=== PATIENT | male | born 1955 | race Caucasian/White ===

== ENCOUNTER → 2018-01-27 | Outpatient (CLI) | payer OTHER, BC ==
[~2018-01-27] MED LIST: ACETAMINOPHEN325 M1 PO; AFLURIA 2045 MCG/0.4; AGGRENOX CAPSU1 EACH PO; ALBUTEROL INH; ALLEGRA ALLERG180 MG PO; ALLEGRA180 MG PO; AMARYL4 MG PO; AMBIEN 10 MG TA10 MG PO; ANTIVERT25 MG PO; ASMANEX0.135 G1 INH; ASPIRIN81 M2 PO; ATIVAN0.5 MG PO; AVELOX 400 MG400 MG PO; AZITHROMYCIN 2250 MG PO; BUSPIRONE HCL10 MG PO; CEFTIN 250 MG250 MG PO; CELEXA 20 MG TA20 M1 PO; CELEXA 20 MG TA20 MG; CENTRUM SILVER1 EAC2 PO; CHANTIX0.5 MG; CHANTIX1 EACH PO; CHANTIX1 MG PO; CLONAZEPAM 1 MG1 M1 PO; CLONAZEPAM PO; COLACE100 MG PO; DALIRESP500 MCG PO; DIPHENOXYLATE/A1 TA1 PO; FORADIL12 MCG INH; FUROSEMIDE 20 M20 M1 PO; FUROSEMIDE 40 M40 M1 PO; GLUCOPHAGE500 MG PO; INSPRA25 MG PO; LASIX 20 MG TAB20 MG PO; LEVAQUIN 500 M500 M2; LEVAQUIN 500 M500 M2 PO; LEVAQUIN 750 M750 MG; LEVOTHYROXINE0.05 MG PO; LISINOPRIL10 MG PO; LISINOPRIL20 MG PO; LOVASTAT40 PO; MAVIK2 MG PO; MUCINEX600 MG PO; MUCUS RELIEF600 MG PO; NASONEX17 GM NASAL; NASONEX17 GM NS; NEXIUM40 MG PO; NIFEDIPINE ER60 M1 PO; NORCO 5-325 TA1 EACH PO; OXYCODONE HCL E10 MG PO; PANTOPRAZOLE SO40 M1 PO; PNEUMOVAX25 MCG/0.5; PREDNISONE 10 M10 M1; PREDNISONE 10 M10 M1 PO; PREDNISONE 10 M10 MG; PREDNISONE 20 M20 M1; PREDNISONE 5 MG5 M1 PO; PREDNISONE 5 MG5 MG PO; PREVACID30 MG PO; PROAIR HFA8.5 GM INH; PROCARDIA XL60 MG PO; PROVENTIL IH; PULMICORT0.5 MG/21; REMERON15 MG PO; REMERON30 MG PO; ROBAXIN 750 MG750 M1 PO; SPIRIVA INH; SYMBICORT160 MCG/4. INH; SYNTHROID PO; SYNTHROID50 MCG PO; TRAMADOL 50 MG50 MG PO; TRANSDERM-SCO1 PATC1 TD; TRAZODONE HCL50 MG PO; VANCOCIN 250 M250 M1 PO; VENLAFAXINE HC150 M1 PO; VITAMIN B-12500 MCG PO; VITAMIN D 5050000 I1 PO; VITAMIN D1000 UNI1 PO; VITAMIN D31000 UNI2 PO; Venlafaxine PO; WELLBUTRIN SR150 MG PO; XIFAXAN550 MG PO; XOPENEX 0.63 MG/3 M1 INH; XOPENEX 1.25 MG/3 M1 INH; XOPENEX1.25 MG/3 INH; ZOFRAN 4 MG ORAL4 M1 DISSOLVE; ZOLPIDEM TART12.5 M1 PO
== END ==
LOC: RAD 10:53
DX: J43.9 Emphysema, unspecified (principal); J41.0 Simple chronic bronchitis

== ENCOUNTER 2018-04-06 16:39 | Inpatient (IN) | payer OTHER, BC ==
[~2018-04-06] VITALS: Ht 172.7 cm; Wt 85.8 kg
--- NOTE | ~2018-04-06 | EKG ---
[address] [place] [address] ELECTROCARDIOGRAM REPORT Name: RAYSHAWN ALFARO Room #: 411-P ADM IN M.R.#: [id number] Admission: 04/06/18 Attend Phys: Kit Ronquillo Discharge: Date of : 51 Report #: [id number] THIS REPORT FOR: //name// [facility] ED Test Date: 2018-04-06 Test Time: 17:07:01 Pat Name: RAYSHAWN ALFARO Department: Room: Gender: M [facility] 1955 Requested By: Flaco Mittal Order Number: [id number] MD: Nick Julien Measurements Intervals [place] Rate: 80 P: 8 WA: 149 QRS: 5 QRSD: 93 T: 51 QT: 393 QTc: 454 Interpretive Statements Baseline artifact Sinus rhythm Atrial premature complex Compared to ECG 09/23/2016 13:59:47 Atrial premature complex(es) now present Electronically Signed On 04-07-2018 7:59:28 CDT by Nick Julien [email or web address] <ELECTRONICALLY SIGNED> By: Nick Julien MD, [facility] 04/07/18 0759 06 06 Nick Julien MD, FACC /EPI
[~2018-04-06 16:39] MED LIST changes: -BUSPIRONE HCL10 MG PO; -MUCINEX600 MG PO; -PANTOPRAZOLE SO40 M1 PO; -PREDNISONE 5 MG5 M1 PO; -TRAZODONE HCL50 MG PO
[2018-04-06 16:57] VITALS: BP 122/76
[2018-04-06] MEDS ORDERED: BUSPIRONE HCL10 MG PO (17:03)
[2018-04-06] MEDS ORDERED: TRAZODONE HCL50 MG PO (17:03)
[2018-04-06 17:12] LABS: ABSOLUTE NEUTROPHILS 4.5 thou/uL (1.4-8.2); BASOPHILS 0.9 % (0.0-2.0); EOSINOPHILS 6.7 % (0.0-3.0); HEMATOCRIT 40.4 % (42.0-52.0); HEMOGLOBIN 13.8 gm/dL (14.0-18.0); MCH 30.4 pg (26.0-34.0); MCHC 34.2 g/dL (28.0-37.0); MCV 88.8 fL (80.0-100.0); PLATELET COUNT 263 thou/uL (150-400); POLYS 61.4 % (36.0-66.0); RBC 4.54 mil/uL (4.50-6.00); RDW 13.2 % (10.5-14.5); WBC 7.3 thou/uL (4.0-11.0)
[2018-04-06 17:23] LABS: ANION GAP 7 mmol/L (7-16); BUN 13 mg/dL (7-18); CALCIUM 9.3 mg/dL (8.5-10.1); CHLORIDE 102 mmol/L (98-107); CO2 31 mmol/L (21-32); CREATININE 1.3 mg/dL (0.7-1.3); GLUCOSE 89 mg/dL (74-106); POTASSIUM 4.2 mmol/L (3.5-5.1); SODIUM 140 mmol/L (136-145)
[2018-04-06 17:25] LABS: BE(vivo) 3.4 mmol/L (-2 to +3); HCO3 27.8 mmol/L (22.0-26.0); PCO2 41.6 mmHg (35.0-45.0); PO2 101.2 mmHg (80.0-100.0); pH 7.443 (7.360-7.450); sO2 97.8 % (92.0-98.0)
[2018-04-06 17:32] LABS: ALBUMIN 3.5 g/dL (3.4-5.0); SGOT 17 U/L (15-37); SGPT 20 U/L (30-65); TOTAL BILIRUBIN 0.4 mg/dL (<0.1-1.0); TOTAL PROTEIN 7.4 g/dL (6.4-8.2); TROPONIN-I < 0.04 ng/mL (<0.06)
[2018-04-06 18:10] VITALS: BP 144/60
[2018-04-06 18:39] LABS: TSH 0.774 uIU/mL (0.358-3.740)
[2018-04-06 19:15] VITALS: BP 137/63
[2018-04-06 20:25] VITALS: BP 137/63
[2018-04-07 04:00] VITALS: BP 130/60
[2018-04-07 09:00] VITALS: BP 164/79
[2018-04-07 11:47] LABS: HEMATOCRIT 38.2 % (42.0-52.0); HEMOGLOBIN 12.6 gm/dL (14.0-18.0); MCH 29.9 pg (26.0-34.0); MCV 90.5 fL (80.0-100.0); RBC 4.22 mil/uL (4.50-6.00); RDW 13.5 % (10.5-14.5); WBC 7.1 thou/uL (4.0-11.0)
[2018-04-07 11:56] LABS: CALCIUM 8.7 mg/dL (8.5-10.1); CREATININE 1.4 mg/dL (0.7-1.3); POTASSIUM 4.3 mmol/L (3.5-5.1)
[2018-04-07 17:43] VITALS: BP 154/70
[2018-04-07 19:40] VITALS: BP 197/89
[2018-04-07 21:15] VITALS: BP 178/79
[2018-04-08 07:35] VITALS: BP 157/74
[2018-04-08 20:31] VITALS: BP 178/67
[2018-04-09 07:50] VITALS: BP 181/88
[2018-04-09 10:55] VITALS: BP 160/81
[2018-04-09 20:01] VITALS: BP 170/83
[2018-04-10 08:01] VITALS: BP 170/88
[2018-04-10 08:05] LABS: CALCIUM 8.6 mg/dL (8.5-10.1); CREATININE 1.3 mg/dL (0.7-1.3); POTASSIUM 4.4 mmol/L (3.5-5.1)
[2018-04-10] MEDS ORDERED: LEVAQUIN 500 M500 M2 PO (08:49)
[2018-04-10] MEDS ORDERED: PANTOPRAZOLE SO40 M1 PO (08:50)
[2018-04-10] MEDS ORDERED: MUCINEX600 MG PO (08:50)
[2018-04-10] MEDS ORDERED: PREDNISONE 5 MG5 M1 PO (08:52)
[2018-04-10 12:19] VITALS: BP 170/88
[2018-04-10 12:46] VITALS: BP 170/88
== END 2018-04-10 14:20 | disposition home or self-care (01) | DRG 871 ==
LOC: ER 16:39 → 4N 17:31 → EROBS 17:31 → 4N 19:15 → SICU 04-07 18:11 → EROBS 04-07 18:26 → SICU 04-07 18:27 → ENTRNSPT 04-10 13:52 → EDTRNSPTSTS 04-10 14:01 → SICU 04-10 14:20
PROVIDERS: Emergency Medicine; Internal Medicine Pulmonary Disease; Nurse Practitioner
DX: A41.9 Sepsis, unspecified organism (principal); J96.21 Acute and chronic respiratory failure with hypoxia; J44.1 Chronic obstructive pulmonary disease with (acute) exacerbation; I11.0 Hypertensive heart disease with heart failure; E78.5 Hyperlipidemia, unspecified; K21.9 Gastro-esophageal reflux disease without esophagitis; M19.90 Unspecified osteoarthritis, unspecified site; F32.9 Major depressive disorder, single episode, unspecified; E66.9 Obesity, unspecified; F17.210 Nicotine dependence, cigarettes, uncomplicated; F41.9 Anxiety disorder, unspecified; G47.33 Obstructive sleep apnea (adult) (pediatric); E03.9 Hypothyroidism, unspecified; Z99.81 Dependence on supplemental oxygen; Z91.5 Personal history of self-harm; Z98.84 Bariatric surgery status; Z90.49 Acquired absence of other specified parts of digestive tract; Z68.28 Body mass index [BMI] 28.0-28.9, adult; Z71.6 Tobacco abuse counseling; Z79.52 Long term (current) use of systemic steroids; Z79.82 Long term (current) use of aspirin; Z79.899 Other long term (current) drug therapy; Z88.8 Allergy status to other drugs, medicaments and biological substances
CPT/HCPCS: 10091; 15002